=== PATIENT | male | born 1980 | race Caucasian/White ===

== ENCOUNTER 2017-11-02 00:31 | Emergency (ER) | payer BC, OTHER ==
[~2017-11-02] VITALS: Ht 182.9 cm; Wt 79.4 kg
[2017-11-02] MEDS ORDERED: LACTATED RINGERS 1,000 ML IV ONE (00:44)
[2017-11-02 01:20] LABS: BASOPHILS % (AUTO) 0 % (0-10); EOSINOPHILS # (AUTO) 0.2 10^3/uL (0.0-0.3); EOSINOPHILS % (AUTO) 3 % (0-10); HEMATOCRIT 44 % (40-54); HEMOGLOBIN 15.3 G/DL (13.3-17.7); LYMPHOCYTES # (AUTO) 1.9 X 10^3 (1.0-4.0); LYMPHOCYTES % (AUTO) 26 % (12-44); MEAN CORPUSCULAR HEMOGLOBIN 29 PG (25-34); MEAN CORPUSCULAR HGB CONC 35 G/DL (32-36); MEAN CORPUSCULAR VOLUME 82 FL (80-99); MEAN PLATELET VOLUME 10.8 FL (7.4-10.4); MONOCYTES # (AUTO) 0.7 X 10^3 (0.0-1.0); MONOCYTES % (AUTO) 10 % (0-12); NEUTROPHILS # (AUTO) 4.3 X 10^3 (1.8-7.8); NEUTROPHILS % (AUTO) 60 % (42-75); PLATELET COUNT 250 10^3/uL (130-400); RED BLOOD COUNT 5.33 10^6/uL (4.35-5.85); RED CELL DISTRIBUTION WIDTH 13.1 % (10.0-14.5); WHITE BLOOD COUNT 7.2 10^3/uL (4.3-11.0)
[2017-11-02] MEDS ORDERED: LORazepam INJ 2 MG/ML (ATIVAN) VIAL IVP ONE (01:30)
[2017-11-02 01:34] LABS: ALANINE AMINOTRANSFERASE 32 U/L (0-55); ALBUMIN 4.5 GM/DL (3.2-4.5); ALKALINE PHOSPHATASE 92 U/L (40-136); BILIRUBIN,TOTAL 0.4 MG/DL (0.1-1.0); BUN/CREATININE RATIO 11; CALCIUM 9.4 MG/DL (8.5-10.1); CARBON DIOXIDE 20 MMOL/L (21-32); CHLORIDE 106 MMOL/L (98-107); CREATININE SERUM 1.17 MG/DL (0.60-1.30); GFR ESTIMATED > 60; GLUCOSE 129 MG/DL (70-105); MAGNESIUM 2.5 MG/DL (1.8-2.4); POTASSIUM 3.3 MMOL/L (3.6-5.0); SODIUM 141 MMOL/L (135-145); TOTAL PROTEIN 7.8 GM/DL (6.4-8.2)
[2017-11-02 01:48] LABS: BILIRUBIN,URINE NEGATIVE (NEGATIVE); CLARITY,URINE CLEAR; COLOR,URINE YELLOW; GLUCOSE, URINE (UA) NEGATIVE (NEGATIVE); KETONES,URINE NEGATIVE (NEGATIVE); LEUKOCYTE ESTERASE ,URINE NEGATIVE (NEGATIVE); NITRITE,URINE NEGATIVE (NEGATIVE); PH,URINE 7 (5-9); PROTEIN,URINE NEGATIVE (NEGATIVE); UROBILINOGEN,URINE NORMAL (NORMAL)
[2017-11-02 01:55] LABS: TSH (THYROID ANALYZER) 1.95 UIU/ML (0.35-4.94)
[2017-11-02 02:10] LABS: BACTERIA,URINE NEGATIVE /HPF; SQUAMOUS EPITHELIAL CELL,UR RARE /HPF
[2017-11-02] MEDS ORDERED: RX-LORAZEPAM (ATIVAN) 0.5 MG TAB PPK#4 PO ONE (02:20)
[2017-11-02] MEDS ORDERED: ALPR0.5T PO (02:21)
[2017-11-02] MEDS ORDERED: RX-LORAZEPAM (ATIVAN) 0.5 MG TAB PPK#4 PO STA (02:21)
--- NOTE | 2017-11-02 02:22 | ED General ---
General Chief Complaint: Cardiac/General Problems Stated Complaint: ANIEXTY Nursing Triage Note: PT REPORTS PALPITATIONS, INSOMNIA, AND BEING "JITTERY". PT REPORTS THAT HE TOOK UNISOM AND TYLENOL PM TO TRY TO SLEEP. 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 DEW AND TEA NO PCP Allergies and Home Medications Allergies Coded Allergies: No Known Drug Allergies (Unverified , 11/02/17) Home Medications Alprazolam 0.5 Mg Tablet, 0.5 MG PO Q6H Prescribed by: LISA BETANCOURT on 11/02/17 0221 Patient Home Medication List Home Medication List Reviewed: Yes Review of Systems Constitutional: no symptoms reported EENTM: no symptoms reported Respiratory: see HPI, short of breath Cardiovascular: see HPI, palpitations Gastrointestinal: no symptoms reported Genitourinary: no symptoms reported; No decreased output Musculoskeletal: no symptoms reported Skin: no symptoms reported Psychiatric/Neurological: See HPI, Anxiety; Denies Numbness, Denies Paresthesia ; Tremors Hematologic/Lymphatic: No Symptoms Reported Immunological/Allergic: no symptoms reported Past Mmdueks-Aqzicf-Sgoxbg Hx Patient Social History Alcohol Use: Rarely Uses Recreational Drug Use: No Smoking Status: Never a Smoker 2nd Hand Smoke Exposure: No Recent Foreign Travel: No Contact w/Someone Who Travel: No Recent Infectious Disease Expo: No Recent Hopitalizations: No Seasonal Allergies Seasonal Allergies: No Past Medical History Surgeries: No Respiratory: No Cardiac: No Neurological: No Genitourinary: No Gastrointestinal: No Musculoskeletal: No Endocrine: No HEENT: No Cancer: No Psychosocial: No Integumentary: No Blood Disorders: No Physical Exam Vital Signs Vital Signs - First Documented 11/02/17 00:40 Temp 97.4 Pulse 64 Resp 28 B/P (MAP) 156/107 (123) Pulse Ox 100 O2 Delivery Room Air Capillary Refill : Less Than 3 Seconds General Appearance: No Apparent Distress, WD/WN, Anxious (MILDLY ANXIOUS, RESTLESS, CONSTANTLY MOVING ARMS AND LEGS) HEENT: PERRL/EOMI Neck: Normal Inspection Respiratory: Normal Breath Sounds, No Accessory Muscle Use, No Respiratory Distress Cardiovascular: Regular Rate, Rhythm, No Edema, No JVD, No Murmur, Normal Peripheral Pulses Gastrointestinal: Normal Bowel Sounds, No Organomegaly, Non Tender, Soft Back: Normal Inspection Extremity: Normal Inspection Neurologic/Psychiatric: Alert, Oriented x3, No Motor/Sensory Deficits, mission planner II- XII Norm as Tested Skin: Normal Color, Warm/Dry Progress/Results/Core Measures Suspected Sepsis Recent Fever Within 48 Hours: No Infection Criteria Present: None New/Unexplained Altered Menta: No Sepsis Screen: No Definite Risk SIRS Temperature:97.4 Pulse: 64 Respiratory Rate: 28 Blood Pressure 156 /107 Mean: 123 Results/Orders Lab Results My Orders Medications Given in ED Vital Signs/I&O Capillary Refill : Less Than 3 Seconds Blood Pressure Mean: 123 Progress Note : Progress Note GIVEN ATIVAN WITH IMPROVEMENT IN SYMPTOMS--PT CALMER, AND IS ASYMPTOMATIC ECG Initial ECG Impression Date: November 02, 2017 Initial ECG Impression Time: 01:01 Initial ECG Rate: 48 Initial ECG Rhythm: Normal Sinus Initial ECG Comparisson: No Previous ECG Available Departure Impression Primary Impression: Insomnia Additional Impressions: Anxiety Palpitations MILD HYPOKALEMIA Disposition: HOME, SELF-CARE Condition: Improved Departure-Patient Inst. Patient Instructions: Anxiety, Adult (DC), Insomnia (DC), Tips for Getting Better Sleep, Palpitations (DC) Add. Discharge Instructions: LOTS OF CLEAR LIQUIDS--WATER, BROTH, JELLO, GATORADE--DRINK EQUAL AMOUNTS OF WATER AND GATORADE, ENOUGH SO YOU ARE URINATING EVERY 2-3 HOURS WHEN IN THE HEAT FOLLOW UP WITH OF JARED THIS WEEK FOR FURTHER CARE RETURN TO ER IF SYMPTOMS WORSEN All discharge instructions reviewed with patient and/or family. Voiced understanding. Scripts Alprazolam (Xanax) 0.5 Mg Tablet 0.5 MG PO Q6H for Anxiety, #10 TAB Prov: LISA BETANCOURT DO 11/02/17 LISA BETANCOURT DO November 02, 2017 02:22
[2017-11-02 02:35] VITALS: BP 148/78
== END 2017-11-02 02:35 | disposition home or self-care (01) ==
LOC: ER 00:34
DX: G47.00 Insomnia, unspecified (principal); F41.9 Anxiety disorder, unspecified; E87.6 Hypokalemia
CPT/HCPCS: 36415; 80053; 81000; 83735; 83880; 84443; 84484; 85025; 85610; 85730; 93005; 93041; 96361; 96374